=== PATIENT | female | born 1980 | race Caucasian/White ===

== ENCOUNTER 2017-07-03 09:01 | Emergency (ER) | payer BC, MEDICAID ==
[~2017-07-03] VITALS: Ht 162.6 cm; Wt 80.5 kg
[2017-07-03 09:07] VITALS: Ht 162.6 cm; Wt 80.5 kg
--- NOTE | 2017-07-03 10:31 | ERD ---
ER Documentation Chief Complaint Chief Complaint brownish VAG BLEEDING 4wks lmp 04/22/17, sharita pain HPI This is a 36-year-old female who presents the emergency department today complaining of some vaginal bleeding that started this morning. Patient states she woke up and noticed that there was some blood in her underwear. Recently found out she was and took a home test and try to go to a clinic but was told that they could not see her. States she is approximately 4 weeks . Denies any abdominal pain, dysuria, fevers or chills, nausea or vomiting ROS All systems reviewed and are negative except as per history of present illness. Medications Home Meds Active Scripts Acetaminophen* (Tylophen*) 500 Mg Capsule, 1 CAP PO Q6H Y for PAIN AND OR ELEVATED TEMP, #30 CAP Prov:LORENZO CURRAN PA-C 07/03/17 Allergies Allergies: Coded Allergies: No Known Allergy (Verified Allergy, Unknown, 04/05/07) PMhx/Soc Medical and Surgical Hx: pt denies Medical Hx, pt denies Surgical Hx Hx Alcohol Use: No Hx Substance Use: No Hx Tobacco Use: No Physical Exam Vitals Vital Signs Date Time Temp Pulse Resp B/P Pulse Ox O2 Delivery O2 Flow Rate FiO2 07/03/17 09:07 98.0 68 20 139/65 98 Physical Exam Const: NAD Head: Atraumatic Eyes: Normal Conjunctiva ENT: Normal External Ears, Nose and Mouth. Neck: Full range of motion..~ No meningismus. Resp: Clear to auscultation bilaterally Cardio: Regular rate and rhythm, no murmurs Abd: Soft, non tender, non distended. Normal bowel sounds Skin: No petechiae or rashes Back: No midline or flank tenderness Ext: No cyanosis, or edema Neur: Awake and alert Psych: Normal Mood and Affect Result Diagram: 07/03/17 1017 Results 24 hrs Laboratory Tests Test 07/03/17 10:08 07/03/17 10:17 Urine Color YELLOW Urine Clarity CLEAR Urine pH 8.0 Urine Specific [place] 1.019 Urine Ketones NEGATIVEmg/dL Urine Nitrite NEGATIVEmg/dL Urine Bilirubin NEGATIVEmg/dL Urine Urobilinogen NEGATIVEmg/dL Urine Leukocyte Esterase NEGATIVELeu/ul Urine Microscopic RBC 4/HPF Urine Microscopic WBC 6/HPF Urine Squamous Epithelial Cells MODERATE/HPF Urine Bacteria FEW/HPF Urine Mucus FEW/HPF Urine Hemoglobin NEGATIVEmg/dL Urine Glucose NEGATIVEmg/dL Urine Total Protein NEGATIVEmg/dl White Blood Count 5.710^3/ul Red Blood Count 4.4210^6/ul Hemoglobin 13.2g/dl Hematocrit 39.1% Mean Corpuscular Volume 88.5fl Mean Corpuscular Hemoglobin 29.9pg Mean Corpuscular Hemoglobin Concent 33.8g/dl Red Cell Distribution Width 13.5% Platelet Count 42819^3/UL Mean Platelet Volume 10.8fl Neutrophils % 73.3% Lymphocytes % 19.7% Monocytes % 6.6% Eosinophils % 0.2% Basophils % 0.0% Nucleated Red Blood Cells % 0.0/100WBC Neutrophils # 4.210^3/ul Lymphocytes # 1.110^3/ul Monocytes # 0.410^3/ul Eosinophils # 0.010^3/ul Basophils # 0.010^3/ul Nucleated Red Blood Cells # 0.010^3/ul Beta HCG, Quantitative 684190.0mIU/ml DIAGNOSTIC IMAGING REPORT Patient: SUZANNE FIERRO : 1980 Age: 36 Sex: F MR #: [id number] DOS: 07/03/17 1004 Ordering MD: LORENZO CURRAN PA-C Location: [facility] Room/Bed: PROCEDURE: US OB. CLINICAL INDICATION: Vaginal bleeding TECHNIQUE: Transabdominal views of the pelvis are available for review. COMPARISON: No prior studies are available for comparison. FINDINGS: There is a single intrauterine gestation with the crown-rump length measuring 3.1 cm, corresponding to a gestational age of 10 weeks and 0 days. The heart rate is noted at 156 bpm. The ovaries are normal in size and echogenicity. Normal Doppler flow is identified in both ovaries. The right ovary measures 3.7 x 2.7 x 3.5 cm. The left ovary measures 2.2 x 2.9 x 2.8 cm. There is no free fluid. RPTAT: AA IMPRESSION: Single live intrauterine with an estimated gestational age of 10 weeks and 0 days, based on ultrasound measurements. .Adolfo Barney MD, Date Time Electronically viewed and signed by .Adolfo Barney MD, MD on 07/03/2017 10: 36 .S/ CC: LORENZO CURRAN PA-C Procedures/MDM This is a A1 36-year-old female who presents to the emergency department today complaining of vaginal bleeding. Patient states she took a home test and states she is approximately 4 weeks . I did do a urine test here in the emergency department was positive. Given this I did obtain a complete OB workup. Laboratory work shows no elevated white blood cell count. She is not anemic. UA is negative for infection Beta quant hCG [id number] Rh status O+ Ultrasound single live intrauterine with an estimated gestational age of 10 weeks and 0 days. There is no free fluid. There is normal Doppler flow identified in both ovaries. heart rate is noted 156 bpm Patient symptoms at this time is consistent with vaginal bleeding in early . Other differentials to consider early normal versus early failed versus placenta previa versus subchorionic hemorrhage. Patient is afebrile and otherwise well-appearing. I have low suspicion for ectopic , tubo ovarian abscess, ovarian torsion. I have explained the results to the patient. I have explained to the patient that they need to follow-up with their clinic. They were given a list of resources. Patient was given a prescription for Tylenol should she develop any pain. At this time the patient is stable for discharge and outpatient management. Patient should follow up with their PCP in the next 1-2 days. They may return to the emergency department sooner for any persistent or worsening of symptoms. Patient understood and agreed with the plan. Departure Diagnosis: Primary Impression: Vaginal bleeding in patient at less than 20 weeks gestation Condition: Fair LORENZO CURRAN PA-C Jul 03, 2017 10:31
--- NOTE | 2017-07-03 10:36 | RADRPT ---
PROCEDURE: US OB. CLINICAL INDICATION: Vaginal bleeding TECHNIQUE: Transabdominal views of the pelvis are available for review. COMPARISON: No prior studies are available for comparison. FINDINGS: There is a single intrauterine gestation with the crown-rump length measuring 3.1 cm, corresponding to a gestational age of 10 weeks and 0 days. The heart rate is noted at 156 bpm. The ovaries are normal in size and echogenicity. Normal Doppler flow is identified in both ovaries. The right ovary measures 3.7 x 2.7 x 3.5 cm. The left ovary measures 2.2 x 2.9 x 2.8 cm. There is no free fluid. RPTAT: AA IMPRESSION: Single live intrauterine with an estimated gestational age of 10 weeks and 0 days, based o n ultrasound measurements. .Adolfo Barney MD, MD Date Time Electronically viewed and signed by .Adolfo Barney MD, MD on 07/03/2017 10:36 .S/
[2017-07-03 10:55] LABS: EOSINOPHILS % 0.2 % (0.0-7.0); HEMATOCRIT 39.1 % (37.0-47.0); HEMOGLOBIN 13.2 g/dl (12.0-16.0); LYMPHOCYTES # 1.1 10^3/ul (0.8-2.9); LYMPHOCYTES % 19.7 % (15.0-51.0); MEAN CORPUSCULAR HEMOGLOBIN 29.9 pg (29.0-33.0); MEAN CORPUSCULAR HGB CONC 33.8 g/dl (32.0-37.0); MEAN CORPUSCULAR VOLUME 88.5 fl (82.0-101.0); MEAN PLATELET VOLUME 10.8 fl (7.4-10.4); MONOCYTE # 0.4 10^3/ul (0.3-0.9); MONOCYTES % 6.6 % (0.0-11.0); NEUTROPHIL # 4.2 10^3/ul (1.6-7.5); NEUTROPHILS % 73.3 % (39.0-77.0); PLATELET COUNT 211 10^3/UL (140-415); RED BLOOD COUNT 4.42 10^6/ul (4.20-5.40); RED CELL DISTRIBUTION WIDTH 13.5 % (11.5-14.5); WHITE BLOOD COUNT 5.7 10^3/ul (4.8-10.8)
[2017-07-03 10:59] LABS: ADD UMIC NO; UR ASCORBIC ACID NEGATIVE (NEGATIVE); UR BILIRUBIN (Dip) NEGATIVE (NEGATIVE); UR BLOOD (Dip) NEGATIVE (NEGATIVE); UR CLARITY CLEAR (CLEAR); UR COLOR YELLOW (YELLOW); UR GLUCOSE (Dip) NEGATIVE (NEGATIVE); UR KETONES (Dip) NEGATIVE (NEGATIVE); UR LEUKOCYTE ESTERASE (Dip) NEGATIVE Leu/ul (NEGATIVE); UR NITRITE (Dip) NEGATIVE (NEGATIVE); UR SPECIFIC GRAVITY (Dip) 1.019 (1.003-1.030); UR TOTAL PROTEIN (Dip) NEGATIVE (NEGATIVE); UR UROBILINOGEN (Dip) NEGATIVE (NEGATIVE)
[2017-07-03 11:15] LABS: UR BACTERIA FEW /HPF (NONE SEEN); UR MUCUS FEW /HPF (NONE SEEN); UR RBC 4 /HPF (0-5); UR SQUAMOUS EPITHELIAL CELL MODERATE /HPF (FEW)
[2017-07-03] MEDS ORDERED: ACET500C5 PO (12:10)
== END 2017-07-03 12:27 | disposition home or self-care (01) ==
LOC: FTE 09:01
DX: O20.9 Hemorrhage in early pregnancy, unspecified (principal); R10.2 Pelvic and perineal pain; Z3A.10 10 weeks gestation of pregnancy
CPT/HCPCS: 36415; 76801; 81003; 84702; 85025; 86900; 86901; Z7502